=== PATIENT | female | born 1975 | race Caucasian/White ===

== ENCOUNTER → 2023-08-12 06:38 | Day surgery (SDC) | payer BC, SELFPAY | LOC: GI 06:38 | PROVIDERS: ATTENDING PHYSICIAN Internal Medicine Gastroenterology | DX: Z12.11 Encounter for screening for malignant neoplasm of colon (principal); D12.3 Benign neoplasm of transverse colon; K63.5 Polyp of colon; K57.30 Diverticulosis of large intestine without perforation or abscess without bleeding; Z83.719 Family history of colon polyps, unspecified | CPT/HCPCS: 45385; 88305 ==

== ENCOUNTER → 2023-11-07 09:06 | Outpatient (REF) | payer BC, SELFPAY ==
[2023-11-07 10:21] LABS: ALT (SGPT) 10 U/L (0-35); AST (SGOT) 17 U/L (14-36); Albumin 4.3 g/dl (3.5-5.0); Alkaline Phosphatase 67 U/L (38-126); Blood Urea Nitrogen 12 mg/dl (7-17); Calcium 10.1 mg/dl (8.4-10.2); Carbon Dioxide 25 mmol/L (22-30); Chloride 102 mmol/L (98-107); Glucose 105 mg/dl (70-99); HDL Cholesterol 62 mg/dl; LDL Cholesterol, Calculated 132 mg/dl; Potassium 4.5 mmol/L (3.5-5.1); Sodium 137 mmol/L (135-145); Total Bilirubin 0.4 mg/dl (0.2-1.3); Total Cholesterol 248 mg/dl (50-199); Total Protein 7.3 g/dl (6.3-8.2); Triglyceride 273 mg/dl (10-149); Very Low Density Lipoprotein 54 mg/dl (0-30); eGFR > 60.00
[2023-11-07 11:01] LABS: Free T4 0.89 ng/dl (0.78-2.19)
[2023-11-07 11:15] LABS: TSH 3.93 uIU/ml (0.47-4.68)
== END ==
LOC: REG 09:06
PROVIDERS: ATTENDING PHYSICIAN Family Medicine
DX: E06.3 Autoimmune thyroiditis (principal); E78.2 Mixed hyperlipidemia
CPT/HCPCS: 36415; 80053; 80061; 84439; 84443

== ENCOUNTER → 2024-01-12 11:52 | Outpatient (REF) | payer BC, SELFPAY ==
[2024-01-12 13:17] LABS: % Basophils 0.8 % (0-2); % Eosinophils 0.9 % (0-6); % Immature Granulocytes 0.4 % (0-0.5); % Monocytes 5.6 % (1.7-9.3); % Neutrophils 53.3 % (42.2-75.2); Absolute Basophils 0.1 10^3/uL (0-0.2); Absolute Eosinophils 0.1 10^3/uL (0-0.7); Absolute Lymphocytes 3.1 10^3/uL (1.2-3.4); Absolute Monocytes 0.4 10^3/uL (0.1-0.6); Absolute Neutrophils 4.2 10^3/uL (1.4-6.5); Hematocrit 36.8 % (37.0-47.0); Hemoglobin 13.1 g/dL (12.0-16.0); Mean Corp Hgb Conc. 35.6 g/dL (33.0-37.0); Mean Corpuscular Hgb 31.3 pg (27.0-31.0); Mean Corpuscular Volume 87.8 fL (81.0-99.0); Mean Platelet Volume 10.3 fL (7.4-10.4); Nucleated Red Blood Cells % 0 %; Platelet Count 397 10^3/uL (130-400); Red Blood Cell Count 4.19 10^6/uL (4.20-5.40); Red Cell Dist. Width 11.9 % (11.5-14.5); White Blood Cell Count 7.9 10^3/uL (4.8-10.8)
[2024-01-12 14:11] LABS: ALT (SGPT) 12 U/L (0-35); AST (SGOT) 20 U/L (14-36); Albumin 4.7 g/dl (3.5-5.0); Alkaline Phosphatase 70 U/L (38-126); Blood Urea Nitrogen 11 mg/dl (7-17); Calcium 10.2 mg/dl (8.4-10.2); Carbon Dioxide 27 mmol/L (22-30); Chloride 101 mmol/L (98-107); Glucose 92 mg/dl (70-99); Potassium 4.4 mmol/L (3.5-5.1); Sodium 137 mmol/L (135-145); Total Bilirubin 0.4 mg/dl (0.2-1.3); Total Protein 7.7 g/dl (6.3-8.2); eGFR > 60.00
[2024-01-12 14:17] LABS: TSH Reflex To Free T4 1.39 uIU/ml (0.47-4.68)
[2024-01-15 01:18] LABS: ANA, IgG Reflex to HEp-2 None Detected (None Detected)
== END ==
LOC: REG 11:52
PROVIDERS: ATTENDING PHYSICIAN Dermatology; FAMILY PHYSICIAN Family Medicine
DX: D89.89 Other specified disorders involving the immune mechanism, not elsewhere classified (principal)
CPT/HCPCS: 36415; 80053; 84443; 85025; 86038; 86430

== ENCOUNTER → 2024-03-10 12:48 | Outpatient (REF) | payer BC, SELFPAY | LOC: WDC 12:48 | PROVIDERS: ATTENDING PHYSICIAN Obstetrics & Gynecology; FAMILY PHYSICIAN Family Medicine | DX: Z12.31 Encounter for screening mammogram for malignant neoplasm of breast (principal) | CPT/HCPCS: 77063; 77067 ==

== ENCOUNTER → 2024-08-04 16:18 | Outpatient (REF) | payer BC, SELFPAY ==
[2024-08-04 17:00] LABS: % Basophils 0.5 % (0-2); % Eosinophils 1.5 % (0-6); % Immature Granulocytes 0.1 % (0-0.5); % Lymphocytes 38.2 % (20.5-51.1); % Monocytes 8.3 % (1.7-9.3); % Neutrophils 51.4 % (42.2-75.2); Absolute Eosinophils 0.1 10^3/uL (0-0.7); Absolute Lymphocytes 3.3 10^3/uL (1.2-3.4); Absolute Monocytes 0.7 10^3/uL (0.1-0.6); Absolute Neutrophils 4.4 10^3/uL (1.4-6.5); Hemoglobin 12.9 g/dL (12.0-16.0); Mean Corp Hgb Conc. 34.9 g/dL (33.0-37.0); Mean Corpuscular Volume 88.9 fL (81.0-99.0); Mean Platelet Volume 9.5 fL (7.4-10.4); Nucleated Red Blood Cells % 0 %; Platelet Count 326 10^3/uL (130-400); Red Blood Cell Count 4.16 10^6/uL (4.20-5.40); Red Cell Dist. Width 11.8 % (11.5-14.5); White Blood Cell Count 8.6 10^3/uL (4.8-10.8)
[2024-08-04 17:18] LABS: Urine Albumin Negative (Neg - Trace); Urine Bilirubin Negative (Negative); Urine Character Clear (Clear); Urine Glucose Negative (Negative); Urine Ketone Negative (Negative); Urine Leukocyte Negative (Negative); Urine Nitrite Negative (Negative); Urine Occult Blood 3+ (Negative); Urine Specific Gravity 1.005 (<1.030); Urine Urobilinogen Negative (Neg - 1+)
[2024-08-04 17:27] LABS: Urine Color Straw
[2024-08-04 17:33] LABS: ALT (SGPT) 13 U/L (0-35); AST (SGOT) 18 U/L (14-36); Albumin 4.8 g/dl (3.5-5.0); Alkaline Phosphatase 63 U/L (38-126); Blood Urea Nitrogen 9 mg/dl (7-17); Calcium 9.6 mg/dl (8.4-10.2); Carbon Dioxide 24 mmol/L (22-30); Chloride 99 mmol/L (98-107); Glucose 111 mg/dl (70-99); Potassium 3.9 mmol/L (3.5-5.1); Sodium 137 mmol/L (135-145); Total Bilirubin 0.5 mg/dl (0.2-1.3); Total Protein 7.8 g/dl (6.3-8.2); eGFR > 60.00
[2024-08-04 17:44] LABS: Protein/creatinine Ratio 0.7; Urine Protein 14 mg/dl
[2024-08-04 18:56] LABS: Erythrocyte Sed Rate 14 mm/hour (0-20)
[2024-08-04 20:30] LABS: Urine Bacteria Few (Negative); Urine Squamous Cell >30 /LPF (Few); Urine White Cell 0-2 /HPF (0-5)
[2024-08-05 00:59] LABS: Complement C3 146 mg/dl (88-165)
[2024-08-07 08:37] LABS: Smith/RNP (ENA), IgG 7 Units (0-19)
[2024-08-07 08:40] LABS: SSA 52 (Ro)(ENA) Ab, IgG 3 AU/mL (0-40); SSA 60 (Ro)(ENA) Ab, IgG 0 AU/mL (0-40); SSB (La)(ENA) Ab, IgG 0 AU/mL (0-40)
[2024-08-07 08:49] LABS: ANA, IgG Reflex to HEp-2 None Detected (None Detected)
== END ==
LOC: REG 16:18
PROVIDERS: ATTENDING PHYSICIAN Physician Assistant; FAMILY PHYSICIAN Family Medicine
DX: L00-L99 Diseases of the skin and subcutaneous tissue (principal); M32.9 Systemic lupus erythematosus, unspecified
CPT/HCPCS: 36415; 80053; 81003; 81015; 82570; 84156; 85025; 85652; 86038; 86140; 86160; 86225; 86235

== ENCOUNTER 2024-10-19 16:04 | Emergency (ER) | payer SELFPAY ==
[2024-10-19 16:09] VITALS: BP 145/74
[2024-10-19 16:15] VITALS: BMI 31.2
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
== END 2024-10-19 21:03 | disposition home or self-care (01) ==
LOC: EMR 16:04
PROVIDERS: EMERGENCY PHYSICIAN Emergency Medicine; FAMILY PHYSICIAN Family Medicine
DX: S16.1XXA Strain of muscle, fascia and tendon at neck level, initial encounter (principal); V43.52XA Car driver injured in collision with other type car in traffic accident, initial encounter
CPT/HCPCS: 99285; 72072; 72125

== ENCOUNTER → 2024-12-14 18:49 | Outpatient (REF) | payer OTHER, BC, SELFPAY | LOC: RAD 18:49 | PROVIDERS: ATTENDING PHYSICIAN Physician Assistant Medical; FAMILY PHYSICIAN Family Medicine | DX: M54.2 Cervicalgia (principal); V87.7XXA Person injured in collision between other specified motor vehicles (traffic), initial encounter | CPT/HCPCS: 72052 ==

== ENCOUNTER → 2025-02-08 09:16 | Outpatient (REF) | payer BC, SELFPAY ==
[2025-02-08 09:59] LABS: Hematocrit 37.8 % (37.0-47.0); Hemoglobin 12.9 g/dL (12.0-16.0); Mean Corp Hgb Conc. 34.1 g/dL (33.0-37.0); Mean Corpuscular Volume 91.5 fL (81.0-99.0); Nucleated Red Blood Cells % 0 %; Platelet Count 359 10^3/uL (130-400); Red Cell Dist. Width 11.8 % (11.5-14.5)
[2025-02-08 10:24] LABS: Glycohemoglobin (HgbA1c) 5.6 % (4.0-5.6)
[2025-02-08 10:27] LABS: ALT (SGPT) 15 U/L (0-35); AST (SGOT) 16 U/L (14-36); Albumin 4.4 g/dl (3.5-5.0); Alkaline Phosphatase 65 U/L (38-126); Blood Urea Nitrogen 11 mg/dl (7-17); Calcium 9.2 mg/dl (8.4-10.2); Carbon Dioxide 26 mmol/L (22-30); Chloride 106 mmol/L (98-107); Glucose 105 mg/dl (70-99); HDL Cholesterol 54 mg/dl; LDL Cholesterol, Calculated 165 mg/dl; Potassium 4.5 mmol/L (3.5-5.1); Sodium 137 mmol/L (135-145); Total Protein 7.4 g/dl (6.3-8.2); Very Low Density Lipoprotein 41 mg/dl (0-30); eGFR > 60.00
[2025-02-08 10:52] LABS: TSH 1.62 uIU/ml (0.47-4.68)
[2025-02-08 11:54] LABS: CRP, Ultra Sensitive 6.59 mg/L (0.30-5.00)
[2025-02-10 01:34] LABS: Lipoprotein a (Lp a) <6 mg/dL (<=29)
== END ==
LOC: REG 09:16
PROVIDERS: ATTENDING PHYSICIAN Family Medicine
DX: E06.3 Autoimmune thyroiditis (principal); E78.2 Mixed hyperlipidemia; Z68.27 Body mass index [BMI] 27.0-27.9, adult
CPT/HCPCS: 36415; 80053; 80061; 83036; 83695; 84439; 84443; 85025; 86141